=== PATIENT | female | born 1975 | race Two or more races ===

== ENCOUNTER 2018-05-28 10:13 | Emergency (ER) | payer MEDICAID ==
[~2018-05-28] VITALS: Ht 162.6 cm; Wt 64.0 kg
[2018-05-28] MEDS ORDERED: LORAZEPAM 2MG/ML CPJ IV ONE ×2 (11:00→15:30)
[2018-05-28 12:22] LABS: BASOPHILS % 0.5 % (0.0-2.0); EOSINOPHILS % 0.1 % (0.0-5.0); HEMATOCRIT. 39.8 % (36.0-48.0); HEMOGLOBIN. 13.2 g/dL (12.0-16.0); MEAN CORPUSCULAR HEMOGLOBIN 28.5 pg (28.0-32.0); MEAN CORPUSCULAR VOLUME 86.1 fL (81.0-99.0); MEAN PLATELET VOLUME 8.3 fl (7.4-10.4); MONOCYTES % 4.6 % (2.0-8.0); NEUTROPHILS % 70.8 % (40.0-76.0); PLATELET 235 x1000/uL (130-400); RED BLOOD CELL COUNT 4.62 mill/uL (4.2-5.4)
[2018-05-28 12:28] LABS: CHLORIDE 104 mEq/L (98-107)
[2018-05-28] MEDS ORDERED: ZIPRASIDONE MESYLATE 20MG/VIAL IM NR (15:14)
[2018-05-28 21:25] VITALS: BP 116/61
== END 2018-05-28 21:25 | disposition home or self-care (01) ==
LOC: ER 10:13
DX: R07.89 Other chest pain (principal); F15.10 Other stimulant abuse, uncomplicated; F17.210 Nicotine dependence, cigarettes, uncomplicated
CPT/HCPCS: 36415; 71045; 80053; 81025; 83880; 84484; 85025; 93005; 96374; 96375; 99285; J2060; J3486

== ENCOUNTER 2018-07-18 14:34 | Emergency (ER) | payer MEDICAID ==
[~2018-07-18] VITALS: Ht 165.1 cm; Wt 87.0 kg
[2018-07-18 15:35] LABS: BASOPHILS % 0.4 % (0.0-2.0); EOSINOPHILS % 0.5 % (0.0-5.0); HEMATOCRIT. 38.6 % (36.0-48.0); HEMOGLOBIN. 12.8 g/dL (12.0-16.0); LYMPHOCYTES % 28.4 % (20.0-50.0); MEAN CORPUSCULAR VOLUME 84.9 fL (81.0-99.0); MEAN PLATELET VOLUME 8.1 fl (7.4-10.4); MONOCYTES % 8.9 % (2.0-8.0); NEUTROPHILS % 61.8 % (40.0-76.0); PLATELET 375 x1000/uL (130-400); RED BLOOD CELL COUNT 4.55 mill/uL (4.2-5.4); RED CELL DISTRIBUTION WIDTH 15.5 % (11.6-14.6)
[2018-07-18 15:38] LABS: CHLORIDE 103 mEq/L (98-107)
[2018-07-18 15:39] LABS: INR 1.1; PROTHROMBIN TIME 10.6 sec (9.1-11.1)
[2018-07-18 15:40] LABS: HCG SCREEN NEGATIVE
[2018-07-18 16:47] LABS: CLARITY URINE TURBID (CLEAR); COLOR URINE DARK YELLOW (YELLOW); KETONES URINE NEGATIVE (NEGATIVE); LEUKOCYTE ESTERASE URINE 1+ (NEGATIVE); NITRITE URINE POSITIVE (NEGATIVE); OCCULT BLOOD URINE 3+ (NEGATIVE); PROTEIN URINE NEGATIVE (NEGATIVE); SPECIFIC GRAVITY URINE 1.029 (1.005-1.030)
[2018-07-18] MEDS ORDERED: CEFTRIAXONE 1 G PREMIX 50 ML IV ONE (18:30)
[2018-07-18 20:17] VITALS: BP 109/59
== END 2018-07-18 20:19 | disposition home or self-care (01) ==
LOC: ER 14:34
DX: N39.0 Urinary tract infection, site not specified (principal); J45.909 Unspecified asthma, uncomplicated; F15.10 Other stimulant abuse, uncomplicated; Z88.0 Allergy status to penicillin
CPT/HCPCS: 36415; 76856; 80053; 81003; 81025; 83605; 83690; 84484; 84703; 85025; 85610; 86850; 86900; 86901; 93005; 96374; 99285; J0696